=== PATIENT | female | born 1935 | race Caucasian/White ===

== ENCOUNTER 2019-06-12 12:45 | Inpatient (IN) | payer MEDICARE, OTHER ==
[~2019-06-12] VITALS: Ht 162.6 cm; Wt 63.5 kg
--- NOTE | ~2019-06-12 | CON ---
[address] [address] CONSULTATION Name: MARICRUZ WOODALL Room: [address] IN .R.#: [id number] Admission: 06/12/19 Attend Phys: Kun Laurent MD Discharge: Date of : 34 Report #: [id number] THIS REPORT FOR: //name// CC: Kun Chavez DATE OF SERVICE: 06/13/2019 REQUESTING PHYSICIAN: Kun Laurent MD REASON FOR CONSULTATION: Hyperkalemia and acute kidney injury. HISTORY OF PRESENT ILLNESS: The patient is a very pleasant 84-year-old white female admitted with chief complaints of abdominal pain. She apparently had been having abdominal pain, nausea, vomiting, diarrhea for the last 3 days. She is not able to keep food or water down. When she was brought in, she was found to be hyperkalemic and an acute kidney injury. PAST MEDICAL HISTORY: Include diabetes, she is on metformin and hypertension. MEDICATIONS: At home reviewed. From my standpoint, she was on lisinopril 40 mg a day, furosemide 40 mg twice a day, potassium chloride, metformin, spironolactone. FAMILY HISTORY: Noncontributory. SOCIAL HISTORY: No tobacco. No alcohol abuse. REVIEW OF SYSTEMS: Her nausea, vomiting, diarrhea resolved, belly pain is resolved. She feels much better. PHYSICAL EXAMINATION: GENERAL: Awake, alert, oriented, in no acute distress. VITAL SIGNS: Blood pressure is 114/43, heart rate 55, afebrile. HEENT: Pupils are round. NECK: Supple. Oral mucosa dry. LUNGS: Clear. CARDIOVASCULAR: Regular rate. ABDOMEN: Soft. LOWER EXTREMITIES: No edema. LABORATORY DATA: Report from today revealed serum sodium of 144, potassium 4.8 down from 69 on admission, chloride 113, BUN 62, down [place] 77 [place] [address] CONSULTATION Name: MARICRUZ WOODALL Room: [address] IN [facility]#: [id number] Admission: 06/12/19 Attend Phys: Kun Laurent MD Discharge: Date of : 34 Report #: [id number] Creatinine is down to 2.1 from 2.7 on admission. She has elevated lipase ____. She had CT scan of abdomen did reveal some nonobstructive stones in kidneys, also left adrenal nodule and infrarenal abdominal aneurysm 4.1 cm in diameter. ASSESSMENT: 1. Acute kidney injury due to volume depletion due to nausea, vomiting and diarrhea. Her renal functions are improving. 2. Hyperkalemia due to acute kidney injury with use of potassium, lisinopril, and spironolactone. 3. Diabetes mellitus type 2. 4. Hypertension. She was hypotensive. PLAN: 1. Continue IV fluids for now. She is still volume depleted. 2. Hold her blood pressure medications. Hold her diuretics. 3. Follow labs in the morning. By: 1135 [id number] Zavala MD /ZAIN
[~2019-06-12 12:45] MED LIST: ASPIR-TRIN325 MG PO; BACTROBAN CREAM30 G1 TOP; BETAMETHASONE D60 M2 TOP; CLONAZEPAM 1 MG1 M1 PO; LIPITOR 20 MG T20 M1 PO; LISINOPRIL10 MG PO; LISINOPRIL40 MG PO; NORVASC 5 MG TAB5 MG PO; PAXIL10 MG PO; TRAMADOL 50 MG50 MG PO; XALATAN2.5 ML OPHTHALMIC
[2019-06-12 12:48] VITALS: BP 106/50
[2019-06-12] MEDS ORDERED: SPIRONOLACTONE25 M1 PO (12:56)
[2019-06-12] MEDS ORDERED: LEXAPRO 10 MG T10 M1 PO (12:56)
[2019-06-12] MEDS ORDERED: ASPIR 8181 MG PO (12:57)
[2019-06-12] MEDS ORDERED: METFORMIN HCL500 MG PO (12:57)
[2019-06-12] MEDS ORDERED: K-DUR 20 MEQ T20 MEQ PO (12:58)
[2019-06-12] MEDS ORDERED: UNICOMPLEX M TA1 TA1 PO (12:58)
[2019-06-12] MEDS ORDERED: VITAMINC500 PO (12:58)
[2019-06-12] MEDS ORDERED: LASIX 40 MG TAB40 M2 PO (12:59)
[2019-06-12] MEDS ORDERED: KEPPRA1000 MG PO (12:59)
[2019-06-12 14:28] LABS: URINE BILIRUBIN NEGATIVE (Negative); URINE BLOOD NEGATIVE (Negative); URINE CLARITY CLEAR; URINE COLOR YELLOW; URINE GLUCOSE-RANDOM NEGATIVE (Negative); URINE KETONES NEGATIVE (Negative); URINE LEUKOCYTES-REFLEX NEGATIVE (Negative); URINE NITRITE-REFLEX NEGATIVE (Negative); URINE PROTEIN TRACE (Negative); URINE UROBILINOGEN 0.2 E.U./dl (0.2-1.0)
[2019-06-12 14:48] LABS: ABSOLUTE EOSINOPHILS 0.1 thou/uL (0.0-0.7); ABSOLUTE LYMPHOCYTES 1.5 thou/uL (0.8-5.3); ABSOLUTE MONOCYTES 0.7 thou/uL (0.0-1.2); BASOPHILS 0.2 %; EOSINOPHILS 1.7 %; HEMATOCRIT 45.9 % (37.0-47.0); HEMOGLOBIN 14.6 gm/dL (12.0-15.0); LYMPHOCYTES 17.9 %; MCHC 31.7 g/dL (28.0-37.0); MCV 91.4 fL (80.0-100.0); MONOCYTES 8.9 %; MPV 9.5 fl. (7.2-11.1); NUCLEATED RBCS 0 /100WBC; PLATELET COUNT* 142 thou/uL (150-400); POLYS 71.3 %; RBC 5.02 mil/uL (4.20-5.00); RDW-CV 14.4 % (10.5-14.5); WBC 8.4 thou/uL (4.0-11.0)
[2019-06-12 14:58] LABS: ANION GAP 16 mmol/L (7-16); BUN 77 mg/dL (7-18); CALCIUM 8.7 mg/dL (8.5-10.1); CHLORIDE 111 mmol/L (98-107); CO2 12 mmol/L (21-32); CREATININE 2.7 mg/dL (0.6-1.3); GLUCOSE 96 mg/dL (70-99); SODIUM 139 mmol/L (136-145)
[2019-06-12 15:00] LABS: POTASSIUM 6.9 mmol/L (3.5-5.1)
--- NOTE | 2019-06-12 15:07 | EKG ---
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 : 1935 Requested By: Carter Vanegas Order Number: [id number] MD: Isreal Hernandez Measurements Intervals [place] Rate: 58 P: 20 CT: 159 QRS: -45 QRSD: 159 T: 132 QT: 455 QTc: 447 Interpretive Statements Sinus rhythm Left bundle branch block Compared to ECG 03/14/2016 13:42:59 No significant changes Electronically Signed On 06-12-2019 15:07:27 CDT by Isreal Hernandez [email or web address] <ELECTRONICALLY SIGNED> By: Isreal Hernandez MD, [facility] 06/12/19 1507 1253 1253 Isreal Hernandez MD, FACC /EPI
[2019-06-12 15:10] LABS: ALKALINE PHOSPHATASE 114 U/L (46-116); LIPASE 578 U/L (73-393); NT-PRO BRAIN NAT PEPTIDE 246 pg/mL (<300); SGOT 56 U/L (15-37); SGPT 44 U/L (30-65); TOTAL BILIRUBIN 0.4 mg/dL (<0.1-1.0); TOTAL PROTEIN 6.7 g/dL (6.4-8.2); TROPONIN-I LEVEL <0.06 ng/mL (<0.06)
[2019-06-12 17:59] VITALS: BP 110/53
[2019-06-12 18:22] VITALS: BP 106/42
[2019-06-12] MEDS ORDERED: ACETAMINOPHEN-1 EAC1 PO (18:40)
[2019-06-12] MEDS ORDERED: TYLENOL325 MG PO (18:42)
[2019-06-12] MEDS ORDERED: SKIN PROTECTAN113 GM TOP (18:45)
[2019-06-12] MEDS ORDERED: RASH RELIEF ANT56 GM TOP (18:46)
[2019-06-12 20:00] VITALS: BP 128/45
[2019-06-12 22:43] LABS: ANION GAP 13 mmol/L (7-16); BUN 69 mg/dL (7-18); CALCIUM 8.3 mg/dL (8.5-10.1); CHLORIDE 113 mmol/L (98-107); CO2 15 mmol/L (21-32); CREATININE 2.5 mg/dL (0.6-1.3); GLUCOSE 155 mg/dL (70-99); SODIUM 141 mmol/L (136-145); TROPONIN-I LEVEL <0.06 ng/mL (<0.06)
[2019-06-12 22:45] LABS: POTASSIUM 5.4 mmol/L (3.5-5.1)
[2019-06-12 23:44] VITALS: BP 102/30
[2019-06-13 04:40] VITALS: BP 92/43
[2019-06-13 04:58] LABS: HEMATOCRIT 38.5 % (37.0-47.0); MCH 29.1 pg (26.0-34.0); MCHC 32.1 g/dL (28.0-37.0); MCV 90.5 fL (80.0-100.0); MPV 8.9 fl. (7.2-11.1); RBC 4.26 mil/uL (4.20-5.00); RDW-CV 14.2 % (10.5-14.5); WBC 7.1 thou/uL (4.0-11.0)
[2019-06-13 05:05] LABS: HEMOGLOBIN 12.4 gm/dL (12.0-15.0)
[2019-06-13 05:35] LABS: ALBUMIN 2.5 g/dL (3.4-5.0); CALCIUM 8.3 mg/dL (8.5-10.1); CREATININE 2.1 mg/dL (0.6-1.3); MAGNESIUM 1.9 mg/dL (1.8-2.4); POTASSIUM 4.8 mmol/L (3.5-5.1); TOTAL BILIRUBIN 0.4 mg/dL (<0.1-1.0); TOTAL PROTEIN 5.7 g/dL (6.4-8.2)
[2019-06-13 07:50] VITALS: BP 114/43
[2019-06-13 12:00] VITALS: BP 112/43
[2019-06-13 16:00] VITALS: BP 110/44
[2019-06-13 20:00] VITALS: BP 123/48
[2019-06-14] VITALS: BP 126/50
[2019-06-14 04:00] VITALS: BP 133/45
[2019-06-14 05:12] LABS: ALBUMIN 2.5 g/dL (3.4-5.0); CALCIUM 8.3 mg/dL (8.5-10.1); CREATININE 1.2 mg/dL (0.6-1.3); MAGNESIUM 1.8 mg/dL (1.8-2.4); POTASSIUM 4.4 mmol/L (3.5-5.1); TOTAL BILIRUBIN 0.4 mg/dL (<0.1-1.0); TOTAL PROTEIN 5.9 g/dL (6.4-8.2)
[2019-06-14 05:29] LABS: HEMOGLOBIN 11.9 gm/dL (12.0-15.0); MCH 29.5 pg (26.0-34.0); MCHC 31.4 g/dL (28.0-37.0); MCV 93.9 fL (80.0-100.0); MPV 9.5 fl. (7.2-11.1); RBC 4.05 mil/uL (4.20-5.00); RDW-CV 14.6 % (10.5-14.5); WBC 6.2 thou/uL (4.0-11.0)
[2019-06-14 09:15] VITALS: BP 96/44
[2019-06-14 16:00] VITALS: BP 115/51
[2019-06-14 19:50] VITALS: BP 159/51
[2019-06-15] VITALS: BP 149/41
[2019-06-15 04:00] VITALS: BP 149/62
[2019-06-15 04:45] LABS: CALCIUM 8.6 mg/dL (8.5-10.1); CREATININE 0.9 mg/dL (0.6-1.3); POTASSIUM 4.1 mmol/L (3.5-5.1)
[2019-06-15 07:30] VITALS: BP 147/64
[2019-06-15 12:53] VITALS: BP 147/64
== END 2019-06-15 15:10 | DRG 682 ==
LOC: M.ERS 12:45 → M.TBA-ER 15:16 → M.2W 15:16
PROVIDERS: Emergency Medicine; Family Medicine; ADMIT Internal Medicine
DX: N17.0 Acute kidney failure with tubular necrosis (principal); G92 Toxic encephalopathy; E87.2 Acidosis; E87.5 Hyperkalemia; I10 Essential (primary) hypertension; E11.9 Type 2 diabetes mellitus without complications; G47.00 Insomnia, unspecified; E78.00 Pure hypercholesterolemia, unspecified; F03.90 Unspecified dementia, unspecified severity, without behavioral disturbance, psychotic disturbance, mood disturbance, and anxiety; K21.9 Gastro-esophageal reflux disease without esophagitis; E86.0 Dehydration; E86.9 Volume depletion, unspecified; I25.10 Atherosclerotic heart disease of native coronary artery without angina pectoris; E27.9 Disorder of adrenal gland, unspecified; K76.0 Fatty (change of) liver, not elsewhere classified; I71.4 Abdominal aortic aneurysm, without rupture; K80.20 Calculus of gallbladder without cholecystitis without obstruction; T38.3X5A Adverse effect of insulin and oral hypoglycemic [antidiabetic] drugs, initial encounter; Z90.710 Acquired absence of both cervix and uterus; Z86.73 Personal history of transient ischemic attack (TIA), and cerebral infarction without residual deficits; Z87.891 Personal history of nicotine dependence; Z90.49 Acquired absence of other specified parts of digestive tract; Z79.82 Long term (current) use of aspirin; Z79.899 Other long term (current) drug therapy; Y92.89 Other specified places as the place of occurrence of the external cause

== ENCOUNTER 2021-01-17 08:35 | Emergency (ER) | payer MEDICARE, OTHER ==
[~2021-01-17] VITALS: Ht 162.6 cm; Wt 81.0 kg
[~2021-01-17 08:35] MED LIST changes: +ACETAMINOPHEN-1 EAC1 PO; +ASPIR 8181 MG PO; +K-DUR 20 MEQ T20 MEQ PO; +KEPPRA1000 MG PO; +LASIX 40 MG TAB40 M2 PO; +LEXAPRO 10 MG T10 M1 PO; +METFORMIN HCL500 MG PO; +RASH RELIEF ANT56 GM TOP; +SKIN PROTECTAN113 GM TOP; +SPIRONOLACTONE25 M1 PO; +TYLENOL325 MG PO; +UNICOMPLEX M TA1 TA1 PO; +VITAMINC500 PO
[2021-01-17 08:59] LABS: HEMOGLOBIN 12.4 gm/dL (12.0-15.0); MCHC 32.4 g/dL (28.0-37.0); NUCLEATED RBCS 0 /100WBC; RBC 4.27 mil/uL (4.20-5.00)
[2021-01-17 09:01] LABS: ABSOLUTE EOSINOPHILS 0.5 thou/uL (0.0-0.7); ABSOLUTE LYMPHOCYTES 1.9 thou/uL (0.8-5.3); ABSOLUTE MONOCYTES 0.7 thou/uL (0.0-1.2); ABSOLUTE NEUTROPHILS 3.9 thou/uL (1.6-8.1); BASOPHILS 0.7 %; EOSINOPHILS 7.3 %; HEMATOCRIT 38.3 % (37.0-47.0); LYMPHOCYTES 26.6 %; MCV 89.6 fL (80.0-100.0); MONOCYTES 10.2 %; MPV 8.5 fl. (7.2-11.1); PLATELET COUNT* 213 thou/uL (150-400); POLYS 55.2 %; RDW-CV 13.4 % (10.5-14.5); WBC 7.1 thou/uL (4.0-11.0)
[2021-01-17] MEDS ORDERED: XANAX 0.25 MG0.25 MG PO (09:02)
[2021-01-17] MEDS ORDERED: NORVASC 2.5 MG2.5 M1 PO (09:02)
[2021-01-17 09:06] LABS: URINE BILIRUBIN NEGATIVE (Negative); URINE BLOOD 1+ (Negative); URINE CLARITY CLEAR; URINE COLOR YELLOW; URINE GLUCOSE-RANDOM NEGATIVE (Negative); URINE KETONES NEGATIVE (Negative); URINE LEUKOCYTES NEGATIVE (Negative); URINE NITRITE NEGATIVE (Negative); URINE PROTEIN NEGATIVE (Negative); URINE SPECIFIC GRAVITY 1.015 (1.005-1.030); URINE UROBILINOGEN 0.2 E.U./dl (0.2-1.0)
[2021-01-17 09:08] LABS: CALCIUM 8.5 mg/dL (8.5-10.1); CREATININE 1.2 mg/dL (0.6-1.3)
[2021-01-17 09:13] LABS: ALBUMIN 3.5 g/dL (3.4-5.0); TOTAL BILIRUBIN 0.6 mg/dL (<0.1-1.0); TOTAL PROTEIN 7.3 g/dL (6.4-8.2)
[2021-01-17 09:15] LABS: BACTERIA 1-9 Few /HPF (None Seen); MUCUS 0-3 Light strn/LPF (None Seen); SQUAMOUS 0-3 Few /LPF (0-3); URINE RBC 3-10 Few /HPF (0-2); URINE WBC 0-5 Rare /HPF (0-5)
[2021-01-17 09:16] LABS: CASTS None Seen /LPF (None Seen); CRYSTALS None Seen /LPF (None Seen)
[2021-01-17] MEDS ORDERED: KEFLEX250 MG PO (09:41)
[2021-01-17 10:35] VITALS: BP 135/47
--- NOTE | 2021-01-19 14:39 | EKG ---
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
== END 2021-01-17 10:37 | disposition home or self-care (01) ==
LOC: M.ERS 08:35
PROVIDERS: Emergency Medicine
DX: R31.9 Hematuria, unspecified (principal); R41.82 Altered mental status, unspecified; I10 Essential (primary) hypertension; E11.9 Type 2 diabetes mellitus without complications; K21.9 Gastro-esophageal reflux disease without esophagitis; Z90.49 Acquired absence of other specified parts of digestive tract; Z86.73 Personal history of transient ischemic attack (TIA), and cerebral infarction without residual deficits; Z90.710 Acquired absence of both cervix and uterus; Z96.642 Presence of left artificial hip joint

== ENCOUNTER 2021-05-05 17:02 | Inpatient (IN) | payer MEDICARE, OTHER ==
[~2021-05-05] VITALS: Ht 167.6 cm; Wt 83.2 kg
--- NOTE | ~2021-05-05 | EKG ---
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
[~2021-05-05 17:02] MED LIST changes: +KEFLEX250 MG PO; +NORVASC 2.5 MG2.5 M1 PO; +XANAX 0.25 MG0.25 MG PO
[2021-05-05 17:09] VITALS: BP 85/40
[2021-05-05 18:01] LABS: ABSOLUTE EOSINOPHILS 0.3 thou/uL (0.0-0.7); ABSOLUTE LYMPHOCYTES 1.1 thou/uL (0.8-5.3); ABSOLUTE MONOCYTES 0.7 thou/uL (0.0-1.2); ABSOLUTE NEUTROPHILS 5.6 thou/uL (1.6-8.1); BASOPHILS 0.3 %; EOSINOPHILS 3.6 %; HEMATOCRIT 36.1 % (37.0-47.0); HEMOGLOBIN 11.8 gm/dL (12.0-15.0); LYMPHOCYTES 14.7 %; MCH 29.6 pg (26.0-34.0); MCHC 32.6 g/dL (28.0-37.0); MONOCYTES 9.4 %; MPV 9.1 fl. (7.2-11.1); NUCLEATED RBCS 0 /100WBC; PLATELET COUNT* 222 thou/uL (150-400); RBC 3.97 mil/uL (4.20-5.00); RDW-CV 14.1 % (10.5-14.5); WBC 7.7 thou/uL (4.0-11.0)
[2021-05-05 18:08] LABS: CALCIUM 8.8 mg/dL (8.5-10.1); CREATININE 4.1 mg/dL (0.6-1.3)
[2021-05-05 18:12] LABS: ALBUMIN 3.2 g/dL (3.4-5.0); TOTAL BILIRUBIN 0.5 mg/dL (<0.1-1.0); TOTAL PROTEIN 7.3 g/dL (6.4-8.2)
[2021-05-05 18:21] LABS: POTASSIUM 7.6 mmol/L (3.5-5.1)
[2021-05-05 20:58] LABS: URINE BILIRUBIN NEGATIVE (Negative); URINE BLOOD TRACE (Negative); URINE CLARITY CLEAR; URINE COLOR YELLOW; URINE GLUCOSE-RANDOM NEGATIVE (Negative); URINE KETONES NEGATIVE (Negative); URINE LEUKOCYTES-REFLEX NEGATIVE (Negative); URINE NITRITE-REFLEX NEGATIVE (Negative); URINE PROTEIN NEGATIVE (Negative); URINE SPECIFIC GRAVITY 1.025 (1.005-1.030); URINE UROBILINOGEN 0.2 E.U./dl (0.2-1.0)
[2021-05-06] VITALS (20 sets, daily range): BP systolic 79–115; BP diastolic 32–46
[2021-05-06 09:12] LABS: POTASSIUM 5.3 mmol/L (3.5-5.1)
--- NOTE | 2021-05-06 09:38 | EKG ---
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
--- NOTE | 2021-05-06 16:02 | 2DMMODE ---
[place] [address] 2 D/M-MODE ECHOCARDIOGRAM Name: MARICRUZ WOODALL Room: 006[facility] IN M.R.#: [id number] Admission: 05/05/21 Attend Phys: Bryan Eckert Discharge: Date of : 34 Date of Service: 05/06/21 1602 Report #: [id number] THIS REPORT FOR: cc: Jace Chavez MD, Todd A. MD Blick,Shade Cormier MD [facility] ~ APPROVED REPORT Study performed: 05/06/2021 15:24:20 EXAM: 2D, Doppler, and color-flow Echocardiogram Patient Location: In-Patient Room #: 006 Status: routine BSA: 1.71 HR: 88 bpm BP: 79/45 mmHg Rhythm: NSR Other Information Study Quality: Fair Technically limited study due to uncooperative patient. Indications Elevated Troponin Aortic Valve AoV Peak Luis Angel.: 1.85 m/s AO Peak Gr.: 13.62 mmHg LVOT Max P.38 mmHg AO Mean Gr.: 9.42 mmHg LVOT Mean P.81 mmHg LVOT Max V: 1.45 m/s AO V2 VTI: 32.40 cm LVOT Mean V: 1.04 m/s LVOT V1 VTI: 24.04 cm Left Ventricle The left ventricle is normal size. There is normal LV segmental wall motion. There is normal left ventricular wall thickness. The left ventricular systolic function is normal. The left ventricular ejection fraction is within the normal range. LVEF is 55-60%. Grade I - abnormal relaxation pattern. Right Ventricle The right ventricle is normal size. The right ventricular [place] [address] 2 D/M-MODE ECHOCARDIOGRAM Name: MARICRUZ WOODALL Room: [address] IN ..#: [id number] Admission: 05/05/21 Attend Phys: Bryan Eckert Discharge: Date of : 34 Date of Service: 05/06/21 1602 Report #: [id number] Atria The left atrium size is normal. The right atrium size is normal. Aortic Valve Mild aortic valve sclerosis. No aortic regurgitation is present. Mitral Valve There is mitral annular calcification. The mitral valve is normal in structure. There is no mitral valve regurgitation noted. Tricuspid Valve Tricuspid valve is not well visualized. Unable to assess PA pressure. Trace tricuspid regurgitation. Pulmonic Valve Pulmonic valve is not well visualized. Great Vessels The aortic root is normal in size. IVC is not well visualized. Pericardium There is no pericardial effusion. <Conclusion> The left ventricular systolic function is normal. The left ventricular ejection fraction is within the normal range. <ELECTRONICALLY SIGNED> By: Shade Turk MD, [facility] 05/06/211601 01 01 Shade Turk MD, [facility] /INF
[2021-05-06 16:20] LABS: HEMATOCRIT 27.2 % (37.0-47.0); MCH 29.7 pg (26.0-34.0); MCV 89.9 fL (80.0-100.0); MPV 8.9 fl. (7.2-11.1); RBC 3.02 mil/uL (4.20-5.00); RDW-CV 13.6 % (10.5-14.5); WBC 8.1 thou/uL (4.0-11.0)
[2021-05-06 16:27] LABS: CREATININE 3.1 mg/dL (0.6-1.3); POTASSIUM 5.4 mmol/L (3.5-5.1)
[2021-05-06 20:29] LABS: HEMATOCRIT 27.4 % (37.0-47.0); HEMOGLOBIN 8.9 gm/dL (12.0-15.0)
[2021-05-07] VITALS (65 sets, daily range): BP systolic 61–202; BP diastolic 24–173
[2021-05-07 05:54] LABS: HEMATOCRIT 22.9 % (37.0-47.0); HEMOGLOBIN 7.4 gm/dL (12.0-15.0); MCH 29.5 pg (26.0-34.0); MCHC 32.5 g/dL (28.0-37.0); MCV 90.7 fL (80.0-100.0); MPV 8.4 fl. (7.2-11.1); RBC 2.52 mil/uL (4.20-5.00); WBC 7.1 thou/uL (4.0-11.0)
[2021-05-07 06:13] LABS: CALCIUM 7.4 mg/dL (8.5-10.1); CREATININE 2.3 mg/dL (0.6-1.3); MAGNESIUM 1.5 mg/dL (1.8-2.4); POTASSIUM 5.6 mmol/L (3.5-5.1); TOTAL BILIRUBIN 0.2 mg/dL (<0.1-1.0); TOTAL PROTEIN 4.4 g/dL (6.4-8.2)
[2021-05-07 11:33] LABS: ABSOLUTE LYMPHOCYTES 0.8 thou/uL (0.8-5.3); ABSOLUTE MONOCYTES 0.7 thou/uL (0.0-1.2); ABSOLUTE NEUTROPHILS 5.2 thou/uL (1.6-8.1); BASOPHILS 0.2 %; EOSINOPHILS 0.4 %; HEMATOCRIT 22.2 % (37.0-47.0); HEMOGLOBIN 7.3 gm/dL (12.0-15.0); LYMPHOCYTES 12.1 %; MCH 29.7 pg (26.0-34.0); MCHC 32.7 g/dL (28.0-37.0); MCV 90.8 fL (80.0-100.0); MONOCYTES 10.4 %; NUCLEATED RBCS 0 /100WBC; PLATELET COUNT* 138 thou/uL (150-400); POLYS 76.9 %; RBC 2.45 mil/uL (4.20-5.00); WBC 6.8 thou/uL (4.0-11.0)
[2021-05-07 12:16] LABS: CALCIUM 7.2 mg/dL (8.5-10.1); CREATININE 2.2 mg/dL (0.6-1.3); MAGNESIUM 1.5 mg/dL (1.8-2.4)
[2021-05-08] VITALS (24 sets, daily range): BP systolic 107–158; BP diastolic 28–101
[2021-05-08 05:38] LABS: HEMATOCRIT 22.7 % (37.0-47.0); HEMOGLOBIN 7.4 gm/dL (12.0-15.0)
[2021-05-09] VITALS (9 sets, daily range): BP systolic 109–156; BP diastolic 50–73
[2021-05-09 05:21] LABS: HEMATOCRIT 21.4 % (37.0-47.0); MCH 29.4 pg (26.0-34.0); MCHC 32.7 g/dL (28.0-37.0); MCV 89.9 fL (80.0-100.0); RBC 2.38 mil/uL (4.20-5.00); RDW-CV 14.2 % (10.5-14.5); WBC 4.6 thou/uL (4.0-11.0)
[2021-05-09 05:42] LABS: CREATININE 1.4 mg/dL (0.6-1.3); POTASSIUM 4.2 mmol/L (3.5-5.1)
[2021-05-09 16:01] LABS: HEMATOCRIT 22.2 % (37.0-47.0); HEMOGLOBIN 7.1 gm/dL (12.0-15.0)
[2021-05-09 16:06] LABS: CALCIUM 8.3 mg/dL (8.5-10.1); CREATININE 1.3 mg/dL (0.6-1.3); POTASSIUM 4.1 mmol/L (3.5-5.1)
[2021-05-10 00:36] VITALS: BP 100/66
[2021-05-10 04:00] VITALS: BP 131/65
[2021-05-10 08:00] VITALS: BP 157/75
[2021-05-10 12:00] VITALS: BP 149/81
--- NOTE | 2021-05-10 14:51 | CON ---
[address] [address] CONSULTATION Name: MARICRUZ WOODALL Room: [address] IN M.R.#: [id number] Admission: 05/05/21 Attend Phys: Dima López Discharge: Date of : 34 Report #: [id number] THIS REPORT FOR: cc: Jace Chavez MD, Todd A. MD Khan, Abid R. MD ~ DATE OF CONSULTATION: 05/09/2021 REFERRING PHYSICIAN: Dr. Eckert. REASON FOR CONSULTATION: Acute kidney injury. HISTORY OF PRESENT ILLNESS: A 85-year-old female who I am being asked to see for acute kidney injury and hypernatremia. She is currently not able to provide much in the way of meaningful history. She was recently in the ICU because of hypotension and was hydrated. She had an open tibia fracture and underwent debridement and nailing. Her creatinine had gone up to 4.1 on May 05 and is now coming down, but she has developed some hypernatremia. She is not polyuric. She appears to be comfortable. REVIEW OF SYSTEMS: Constitutional, psych, heme, eyes, ENT, respiratory, cardiac, GI, , endocrine, all negative except as documented above and as best as can be ascertained. PAST MEDICAL HISTORY: Diabetes type 2, coronary artery disease, left hip replacement, dementia, rheumatic heart disease, history of abdominal aortic aneurysm. MEDICATIONS: Reviewed. FAMILY HISTORY: Not pertinent in this 85-year-old female. SOCIAL HISTORY: No current tobacco. PHYSICAL EXAMINATION: VITAL SIGNS: Blood pressure is 148/60, pulse 80, respirations 18, temperature 36.4. GENERAL: No acute distress. HEENT: Eyes are open. EARS: Externally normal. CARDIOVASCULAR: Regular rate. LUNGS: Diminished. ABDOMEN: Soft. MUSCULOSKELETAL: Nontender. PSYCHIATRIC: Somnolent, [place] [address] CONSULTATION Name: MARICRUZ WOODALL Room: [address]#: [id number] Admission: 05/05/21 Attend Phys: Dima óLpez Discharge: Date of : 34 Report #: [id number] LABORATORY DATA: White cell count 4.6, hemoglobin 7, platelets 145. Sodium 154, potassium 4.2, chloride 122, bicarbonate 25, BUN 37, creatinine 1.4, calcium 8. ASSESSMENT AND PLAN: 1. Acute kidney injury with a creatinine of 4.1 in May 05, improving significantly. On 01/17, creatinine was 1.2 and in 2018 creatinine was 0.9. UA was okay. Ultrasound was okay. 2. Hypernatremia. 3. Coronary artery disease. 4. Diabetes type 2. 5. Dementia. 6. Left tib-fib fracture, status post debridement and nailing. 7. History of abdominal aortic aneurysm. PLAN: 1. Renal function is improved. 2. Start D5W. 3. Check lab again in a.m. 4. Anemia per Internal Medicine. Thank you for requesting my opinion in the care and management of this patient. <ELECTRONICALLY SIGNED> By: Brad Membreno MD 05/10/21 1451 1425 1511Abidima Membreno MD /nt
[2021-05-10 16:00] VITALS: BP 136/72
[2021-05-10 22:39] VITALS: BP 139/64
[2021-05-11 04:47] VITALS: BP 149/63
[2021-05-11 08:13] LABS: HEMATOCRIT 22.6 % (37.0-47.0); HEMOGLOBIN 7.6 gm/dL (12.0-15.0); MCH 29.9 pg (26.0-34.0); MCHC 33.5 g/dL (28.0-37.0); MCV 89.2 fL (80.0-100.0); MPV 8.1 fl. (7.2-11.1); RBC 2.54 mil/uL (4.20-5.00); RDW-CV 13.8 % (10.5-14.5); WBC 7.1 thou/uL (4.0-11.0)
[2021-05-11 08:29] LABS: ANION GAP 6 mmol/L (7-16); BUN 18 mg/dL (7-18); CALCIUM 8.1 mg/dL (8.5-10.1); CHLORIDE 109 mmol/L (98-107); CO2 26 mmol/L (21-32); CREATININE 1.1 mg/dL (0.6-1.3); GLUCOSE 130 mg/dL (70-99); MAGNESIUM 1.8 mg/dL (1.8-2.4); POTASSIUM 3.5 mmol/L (3.5-5.1); SODIUM 141 mmol/L (136-145); TROPONIN-I LEVEL <0.06 ng/mL (<0.06)
[2021-05-11 09:00] VITALS: BP 122/62
--- NOTE | 2021-05-11 09:59 | EKG ---
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 : 1935 Requested By: Bryan Eckert Order Number: [id number] Donovan MD: Shade Turk Measurements Intervals [place] Rate: 168 P: 0 NM: QRS: -30 QRSD: 144 T: 165 QT: 280 QTc: 469 Interpretive Statements Extreme tachycardia with wide complex, consider ventricular tachycardia Compared to ECG 05/09/2021 18:00:27 No significant changes Electronically Signed On 05-11-2021 9:59:44 CDT by Shade Turk [email or web address] <ELECTRONICALLY SIGNED> By: Shade Turk MD, [facility] 05/11/21 0959 180 180 Shade Turk MD, [facility] /EPI
--- NOTE | 2021-05-11 09:59 | EKG ---
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
--- NOTE | 2021-05-11 12:26 | EKG ---
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 : 1935 Requested By: Shade Turk Order Number: [id number] Reading MD: Shade Turk Measurements Intervals [place] Rate: 79 P: 51 [place]: 213 QRS: -21 QRSD: 175 T: 174 QT: 488 QTc: 560 Interpretive Statements Sinus rhythm Borderline prolonged [place] interval Left bundle branch block Baseline wander in lead(s) II,III,aVR,aVL,aVF,V5 Compared to ECG 05/09/2021 18:02:53 Ventricular tachycardia no longer present Electronically Signed On 05-11-2021 12:25:59 CDT by Shade Turk [email or web address] <ELECTRONICALLY SIGNED> By: Shade Tukr MD, [facility] 05/11/21 1225 1201 1201 Shade Turk MD, [facility] /EPI
--- NOTE | 2021-05-11 12:58 | CON ---
[address] [address] CONSULTATION Name: MARICRUZ WOODALL Room: [address] IN M.R.#: [id number] Admission: 05/05/21 Attend Phys: Dima López Discharge: Date of : 34 Report #: [id number] THIS REPORT FOR: cc: Jace Chavez MD, Todd A. MD Blick, David R. MD [facility] ~ cc: Jace Chavez MD DATE OF CONSULTATION: 05/10/2021 CARDIOLOGY CONSULTATION HISTORY OF PRESENT ILLNESS: The patient is an 85-year-old white female who I was asked to see in the hospital today after she was noted to have a wide complex tachycardia. The history is obtained from the patient as well as some old records. The patient is currently confused. She currently lives in a long-term care facility. 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 She was admitted here in 2019. She has a history of diabetes. She was found to have a small abdominal aneurysm. She was treated medically. She was brought to the emergency room 5 days ago by paramedics. She apparently fell and suffered a fracture of her left tibial fibula bone with skin lacerations. She underwent surgery several days ago. She is now recovering. On the monitor last night, she was noted to be in a wide complex tachycardia. Cardiology consultation requested. She denies any chest pain, shortness of breath, palpitations, syncope. She is not very active at this time. PAST MEDICAL HISTORY: Significant for dementia, chronic kidney disease. She has a history of hypertension, diabetes. She has a history of a stroke, rheumatic heart disease, abdominal aneurysm. PAST SURGICAL HISTORY: She has had previous hysterectomy, previous hip surgery. ALLERGIES: She has no known drug allergies. MEDICATIONS: On admission include Xanax, Norvasc, aspirin, lisinopril, metformin, Lasix. SOCIAL HISTORY: She is a former smoker. REVIEW OF SYSTEMS: No history of cancer, psychiatric illness. PHYSICAL EXAMINATION: GENERAL: Revealed an elderly female lying in bed. She appeared in no acute distress. VITAL SIGNS: She had a blood pressure of 120/70, pulse is 70, [place] [address] CONSULTATION Name: MARICRUZ WOODALL Yessica Room: [address]#: [id number] Admission: 05/05/21 Attend Phys: Dima López Discharge: Date of : 34 Report #: [id number] HEENT: She was anicteric. Conjunctivae appear pale. Mucous membranes appear dry. NECK: Veins not appear distended. CHEST: Clear to auscultation. HEART: Regular rate and rhythm. ABDOMEN: Obese. EXTREMITIES: Had trace edema. SKIN: Cool and dry. LABORATORY DATA: Her ECG on admission showed a sinus rhythm with a left bundle branch block. Yesterday, the patient went into a wide complex tachycardia consistent with ventricular tachycardia. She was placed on IV amiodarone and now is in a sinus rhythm. The patient had an echocardiogram performed last week that showed normal ejection fraction, no significant valvular abnormality. The patient had a CT scan of the head on admission after she fell that showed atrophy, previous stroke. Her chest x-ray on admission showed normal heart size, clear lung flood. She had renal ultrasound performed that showed no hydronephrosis. Her lab work, sodium is 153, potassium 4.1, BUN 32, creatinine is 1.3, it was actually 4.0 last week. Her liver function studies were normal. Magnesium was 1.6, albumin is 2.0. Troponin 0.1. Her hemoglobin on admission was 11.8, is currently 7.1. Her COVID antigen stat test on admission was negative. Urinalysis is negative for protein. IMPRESSION AND RECOMMENDATIONS: 1. Wide complex tachycardia. Possible ventricular tachycardia. I would continue amiodarone. The patient is noted to be a no code blue status. 2. Hypertension. I would hold her calcium zackary and BECKI inhibitor at this time. 3. Previous stroke. 4. Chronic kidney disease. 5. Anemia. 6. Dementia. <ELECTRONICALLY SIGNED> By: Shade Turk MD, FACC 05/11/21 1258 0539 0916Shade Turk MD, FAC /nt
[2021-05-11 14:42] VITALS: BP 110/53
[2021-05-11 20:00] VITALS: BP 127/58
[2021-05-11 20:08] VITALS: BP 107/44
[2021-05-12 01:18] VITALS: BP 100/40
[2021-05-12 04:38] VITALS: BP 146/77
[2021-05-12 05:10] LABS: HEMATOCRIT 24.8 % (37.0-47.0); HEMOGLOBIN 8.3 gm/dL (12.0-15.0); MCH 29.9 pg (26.0-34.0); MCHC 33.6 g/dL (28.0-37.0); MCV 89.1 fL (80.0-100.0); MPV 8.3 fl. (7.2-11.1); RBC 2.78 mil/uL (4.20-5.00); RDW-CV 13.7 % (10.5-14.5); WBC 9.7 thou/uL (4.0-11.0)
[2021-05-12 05:13] LABS: CALCIUM 8.5 mg/dL (8.5-10.1); POTASSIUM 3.6 mmol/L (3.5-5.1)
[2021-05-12 08:00] VITALS: BP 131/49
[2021-05-12] MEDS ORDERED: PACERONE 200 M200 M1 PO (09:20)
[2021-05-12 10:46] VITALS: BP 131/49
--- NOTE | 2021-05-13 07:29 | OP ---
[address] [address] OPERATIVE REPORT Name: MARICRUZ WOODALL Yessica Room: [address] IN M.R.#: [id number] Admission: 05/05/21 Attend Phys: Dima López Discharge: 05/12/21 Date of : 33 Report #: [id number] THIS REPORT FOR: cc: Jace Chavez MD, Todd A. MD Justice, Michael J. DO ~ DATE OF SURGERY: 05/06/2021 PREOPERATIVE DIAGNOSIS: Left grade 2 open proximal tibial shaft fracture. POSTOPERATIVE DIAGNOSIS: Left grade 2 open proximal tibial shaft fracture. PROCEDURE PERFORMED: 1. Irrigation and debridement of left open tibial shaft fracture. 2. Open treatment with intramedullary nail, left open tibial shaft fracture, suprapatellar approach. IMPLANTS: [place] T2 Alpha Tibial Nail, 10 x 335 SURGEON: Isreal Antonio DO ANESTHESIA: General. FLUIDS: Crystalloid. ESTIMATED BLOOD LOSS: 200 mL DRAINS: None. SPECIMENS: None. COMPLICATIONS: None. CONDITION: Stable. DISPOSITION: PACU to med/surg floor. PREOPERATIVE ANTIBIOTICS: The patient is on scheduled Rocephin daily. INDICATIONS: The patient is a pleasantly demented 85-year-old female, resident of [facility] here on [facility]. She sustained a ground level fall yesterday afternoon and also developed a large skin tear, transverse in nature, located at the fracture site across the anterior tibia. She was seen in the emergency room where she underwent a bedside irrigation and wound closure by the ER doc. We subsequently evaluated her and admitted her to the floor. She did receive appropriately-timed [facility] [address] [place] [address] OPERATIVE REPORT Name: MARICRUZ WOODALL Room: [address] M.R.#: [id number] Admission: 05/05/21 Attend Phys: Dima López Discharge: 05/12/21 Date of : 33 Report #: [id number] antibiotics and has been on antibiotics since. She was recommended for a formal irrigation, debridement and internal fixation. Today, her son, who is the DPOA was informed of the risks, benefits and alternatives of this. He verbalized understanding and wished to proceed. FINDINGS: We evaluate the leg intraoperatively. It was noted to be quite unstable. It was an open fracture once we reopened the wound and examined the fracture site. Her bone quality is quite osteoporotic. She said, but otherwise the soft tissues looked appropriate other than the proximal part of the skin laceration is quite thin and somewhat dusky in appearance. It is ecchymotic, though which makes viability a little more difficult to ascertain. She has previous surgical incision along the anterior knee, presumably from her distal femoral ORIF, which was performed reportedly about 5 years ago. She has a lateral distal femoral plate and screw construct in place with an apparent healed supracondylar distal femur fracture. She has very notable patellar baja and a contracted knee. We subsequently opened the medial parapatellar arthrotomy to perform the procedure. There was a large #5 Ethibond sutures in this area, which were removed. She also had some calcification of her quad tendon. There was also an old fracture encountered in the distal one-third of her tibia, which is well healed. DESCRIPTION OF PROCEDURE: The patient was brought to the operating suite, placed in supine position on the OR table, given the benefit of general anesthetic. The left lower extremity was then prepped and draped in the usual sterile fashion with a chlorhexidine scrub, alcohol rinse and ChloraPrep paint. Timeout was utilized to ensure proper operative patient, procedure, and extremity. Once antibiotic administration were verified, we began by opening the previous laceration, which was closed in the ED. We thoroughly irrigated this wound with over 3000 mL of sterile saline and cysto tubing. Once we felt this was thoroughly irrigated and of note there was no debris encountered in this wound is a very clean wound. We proceeded with the midline incision over the patella, extended this down through the medial parapatellar arthrotomy, which had been made previously some point in time, years ago and we were able to sublux the patella slightly. We then had good exposure of the proximal tibia where we started with a guidewire, which was verified in two orthogonal planes to be in the appropriate starting position. We then utilized an entry reamer with a protective covering to avoid damage to surrounding structures including the patella. We entered the proximal portion of the tibia while the leg was resting on a bone foam ramp. We then placed a ball tip guidewire across the fracture site as we had excellent reduction, reamed up to an 11.5 mm reamer and placed a 10 mm nail. We measured and placed a 330 x 10 mm nail to the appropriate depth. We had to keep it as proximal as possible to get as many screw across the proximal fragment as possible. We were able to get 3 screws into the proximal fragment. We then placed appropriately sized screws through the aiming arm of the proximal aspect of the [place] [address] OPERATIVE REPORT Name: MARICRUZ WOODALL Room: [address] IN [facility]#: [id number] Admission: 05/05/21 Attend Phys: Dima López Discharge: 05/12/21 Date of : 33 Report #: [id number] distal interlocking screws were placed with perfect [place] technique from a medial lateral direction in standard fashion. Overall, we were quite pleased with this construct to provide a nice stable fixation for her fracture. Of note, we did use a Sathish T2 tibial nail with advanced locking screws proximally and distally due to the osteoporotic nature of her bone. Overall, she tolerated the procedure well. The proximal aiming arm was removed. We thoroughly irrigated the wounds once more. The laceration site was closed gently with a combination of vertical mattress stitches and simple interrupteds to help offload some of the tension at the skin edge. We closed the arthrotomy with #1 Vicryl, 3-0 Vicryl was used subcuticularly with ravinder, applied to the skin. Ravinder were also placed in the smaller holes for screw insertion. Sterile dressings were applied. The patient was transferred to PACU in stable condition. <ELECTRONICALLY SIGNED> By: Isreal Antonio DO 05/13/21728 52 28Isreal Antonio DO /nt
== END 2021-05-12 15:15 | DRG 492 ==
LOC: M.ERS 17:02 → M.TBA-ER 18:48 → M.ICU 05-06 11:30 → M.2W 05-08 11:55
PROVIDERS: Anesthesiology; Family Medicine; Internal Medicine; Internal Medicine Cardiovascular Disease; Orthopaedic Surgery; ADMIT Internal Medicine; ATTEND Internal Medicine
PROC: 0HQ1XZZ Repair Face Skin, External Approach (ICD-10-PCS; principal; 2021-05-05)
PROC: 0HQEXZZ Repair Left Lower Arm Skin, External Approach (ICD-10-PCS; principal; 2021-05-05)
PROC: 2W3RXYZ Immobilization of Left Lower Leg using Other Device (ICD-10-PCS; principal; 2021-05-05)
PROC: 0QSH06Z Reposition Left Tibia with Intramedullary Internal Fixation Device, Open Approach (ICD-10-PCS; 2021-05-06)
DX: M80.062A Age-related osteoporosis with current pathological fracture, left lower leg, initial encounter for fracture (principal); N17.0 Acute kidney failure with tubular necrosis; E87.0 Hyperosmolality and hypernatremia; I69.354 Hemiplegia and hemiparesis following cerebral infarction affecting left non-dominant side; N18.5 Chronic kidney disease, stage 5; I47.2 Ventricular tachycardia; I12.0 Hypertensive chronic kidney disease with stage 5 chronic kidney disease or end stage renal disease; G47.00 Insomnia, unspecified; F03.90 Unspecified dementia, unspecified severity, without behavioral disturbance, psychotic disturbance, mood disturbance, and anxiety; E78.00 Pure hypercholesterolemia, unspecified; K21.9 Gastro-esophageal reflux disease without esophagitis; I25.10 Atherosclerotic heart disease of native coronary artery without angina pectoris; Z96.642 Presence of left artificial hip joint; E87.5 Hyperkalemia; S81.812A Laceration without foreign body, left lower leg, initial encounter; S61.512A Laceration without foreign body of left wrist, initial encounter; W06.XXXA Fall from bed, initial encounter; E11.22 Type 2 diabetes mellitus with diabetic chronic kidney disease; Z20.822 Contact with and (suspected) exposure to COVID-19; Z90.710 Acquired absence of both cervix and uterus; Z90.49 Acquired absence of other specified parts of digestive tract; Z79.82 Long term (current) use of aspirin; Y93.89 Activity, other specified; Z79.899 Other long term (current) drug therapy; Y92.89 Other specified places as the place of occurrence of the external cause; Z87.891 Personal history of nicotine dependence; Y99.8 Other external cause status